=== PATIENT | female | born 1975 | race Native Hawaiian/Other Pacific Islander ===

== ENCOUNTER 2018-05-24 15:40 | Outpatient (CLI) | payer BC | END 2018-05-24 23:04 | disposition home or self-care (01) | LOC: MAMMO 15:40 | DX: Z12.31 Encounter for screening mammogram for malignant neoplasm of breast (principal) ==

== ENCOUNTER 2019-02-28 08:10 | Outpatient (CLI) | payer BC | END 2019-02-28 20:07 | disposition home or self-care (01) | LOC: MAMMO 08:10 | DX: N60.11 Diffuse cystic mastopathy of right breast (principal); N63.12 Unspecified lump in the right breast, upper inner quadrant ==

== ENCOUNTER 2019-06-21 15:22 | Outpatient (CLI) | payer BC | END 2019-06-21 22:31 | disposition home or self-care (01) | LOC: MAMMO 15:22 | DX: Z12.31 Encounter for screening mammogram for malignant neoplasm of breast (principal) ==

== ENCOUNTER 2020-07-28 12:41 | Outpatient (CLI) | payer BC | END 2020-07-28 19:34 | disposition home or self-care (01) | LOC: MAMMO 12:41 | PROVIDERS: ATTEND Obstetrics & Gynecology | DX: Z12.31 Encounter for screening mammogram for malignant neoplasm of breast (principal) ==

== ENCOUNTER 2021-09-22 09:20 | Outpatient (CLI) | payer BC | END 2021-09-22 19:41 | disposition home or self-care (01) | LOC: MAMMO 09:20 | PROVIDERS: ATTEND Obstetrics & Gynecology | DX: Z12.31 Encounter for screening mammogram for malignant neoplasm of breast (principal) ==

== ENCOUNTER 2021-10-23 08:17 | Outpatient (CLI) | payer BC | END 2021-10-23 20:30 | disposition home or self-care (01) | LOC: US 08:17 | PROVIDERS: ATTEND Obstetrics & Gynecology | DX: R92.2 Inconclusive mammogram (principal) ==

== ENCOUNTER 2022-09-28 08:11 | Outpatient (CLI) | payer BC | END 2022-09-28 20:51 | disposition home or self-care (01) | LOC: MAMMO 08:11 | PROVIDERS: ATTEND Obstetrics & Gynecology | DX: Z12.31 Encounter for screening mammogram for malignant neoplasm of breast (principal) ==

== ENCOUNTER 2022-10-28 13:19 | Outpatient (CLI) | payer BC | END 2022-10-28 20:55 | disposition home or self-care (01) | LOC: MAMMO 13:19 | PROVIDERS: ATTEND Obstetrics & Gynecology | DX: R92.2 Inconclusive mammogram (principal) ==